=== PATIENT | male | born 1965 | race Caucasian/White ===

== ENCOUNTER 2022-08-07 05:52 | Day surgery (SDC) | payer BC, SELFPAY ==
[2022-08-07 06:40] VITALS: BP 140/93; PULSE 92; RESP 20; TEMP 36.3; O2SAT 100; BMI 28.4
[2022-08-07 06:42] LABS: COVID-19 Test Negative (Negative); IDNOW Serial# 55D5AD1C
--- NOTE | 2022-08-07 07:10 | HO.ANESPROP2 ---
[facility] Active Problems Active Problems: All Active Problems (Updated 08/06/22 @ 22:23 by Omid Hoff MD) Major depressive disorder, recurrent episode, severe with anxious distress (Acute) Past Medical History Medical History (Updated 08/06/22 @ 22:23 by Omid Hoff MD) Depression Essential hypertension History of severe acute respiratory syndrome coronavirus 2 (SARS-CoV-2) disease Mild intermittent asthma Pure hypercholesterolemia Sleep apnea Vitamin D deficiency Functional capacity: independent ambulation Family History Family history of problems with anesthesia: No Surgical History Surgical History History of colonoscopy History of foot surgery History of inguinal hernia repair History of vasectomy History of Problems with Anesthesia: No Social History Social History Patient Tobacco Use Status: Never used Tobacco Advance Directives: No Advance Directives Information Provided: Yes Current occupational status: employed Current occupation: self employed Meds Allergies Allergy/AdvReac Type Severity Reaction Status Date / Time Penicillins [PCN] Allergy Unknown Verified 08/06/22 10:57 Home Medications Medication Instructions Recorded Confirmed Last Taken Type albuterol sulfate 90 mcg/actuation 2 puff inhalation QID PRN 08/06/22 08/06/22 Unknown History aerosol inhaler Shortness Of Breath Or Wheezing beclomethasone dipropionate 80 2 inh inhalation BID 08/06/22 08/06/22 Unknown History mcg/actuation HFA breath activated aerosol (Qvar RediHaler) cholecalciferol (vitamin D3) 50 50 mcg PO DAILY 08/06/22 08/06/22 Unknown History mcg (2,000 unit) tablet (Vitamin D3) clonazepam 2 mg tablet 2 mg PO DAILY 08/06/22 08/06/22 Unknown History lisinopril 10 mg tablet 10 mg PO DAILY 08/06/22 08/06/22 Unknown History lithium carbonate 300 mg 300 mg PO DAILY 08/06/22 08/06/22 Unknown History tablet,extended release lovastatin 40 mg tablet 40 mg PO DAILY 08/06/22 08/06/22 Unknown History ropinirole 1 mg tablet 1 mg PO DAILY 08/06/22 08/06/22 Unknown History Exam Exam Date and Time: August 07, 2022 0710 Height,Weight and Vital Signs: Height 5 ft 10 in Weight 89.811 kg Last Vital Signs Temp 97.3 F 08/07/22 06:40 Pulse 92 08/07/22 06:40 Resp 20 08/07/22 06:40 BP 140/93 H 08/07/22 06:40 Pulse Ox 100 08/07/22 06:40 O2 Del Method 08/07/22 06:40 Pertinent Lab Results Pertinent Lab Results: Laboratory Tests 08/07/22 06:15 COVID-19 ([facility]) Negative COVID-19 Clin Com See Note Airway Mallampati Class: III TM Dist: >3cm Neck ROM: Full Heart: RRR Lungs: CTA Assessment and Plan Final Anesthetic Review Family History of Problems with Anesthesia: No History of Problems with Anesthesia: No ASA Class: III Final Preanesthetic Review: Meds/Allgs Chart Reviewed, Consent Obtained/Reviewed and Anes Risks/Benef Reviewed Patient Risk: Low Procedure Risk: Low Anesthetic Plan Anesthetic Plan: GA Disposition: Standard PACU
--- NOTE | 2022-08-07 07:37 | MHC.SHP ---
Pre-Procedural Eval Section A Date of Service: 08/07/22 The patient is an INPATIENT: No Changes since office visit: Yes Changes in Medication and Yes Patient answered all questions; No Cold of Flu in the past 2 weeks and No New Medical Problems The History & Physical has been completed within 30 days and I have reviewed it.: Yes Section B Chief Complaint: depression Allergies: Allergies Allergy/AdvReac Type Severity Reaction Status Date / Time Penicillins [PCN] Allergy Unknown Verified 08/06/22 10:57 Plan I have reviewed the history and physical and performed a pertinent physical examination on my patient. No changes have occurred unless specified.
--- NOTE | 2022-08-07 07:38 | HO.ECTPROC ---
ECT Procedure Note Diagnosis/Treatment Date of Service: 08/07/22 Diagnosis: Major Depressive Disorder Current Treatment Number: 1 Treatment: Series Interval Clinical Notes: see ect eval agitated depression with insomnia ECT Settings Device: THYMATRON DGx Electrode Placement: Right Unilateral Program/Pulse Width: 0.50 Energy Percent: 100 Seizure Duration By EEG (in seconds): 40 Medications Administration General Anesthetic: Etomidate (16) Muscle Relaxant: Succinylcholine (100) Ancillary Medications Anti-emetics: Zofran - Pre ECT Miscillaneous Medications: Flumazenil (500 mcg pre tx ) Airway Management Airway Management: Bag Mask Ventilation Treatment Recommendations Program/Pulse Width: 0.25 Energy Percent: 100 Notes: change to .25 program some confusion post ect transient ectopy
[2022-08-07 07:50] VITALS: BP 156/89; PULSE 75; RESP 16; TEMP 36.8; O2SAT 100
[2022-08-07] MEDS: Haloperidol Lactate 5 MG/ML VIAL 2 MG IVPUSH (08:22)
--- NOTE | 2022-08-07 08:27 | HO.ECTPROC ---
ECT Procedure Note Diagnosis/Treatment Date of Service: 08/07/22 ECT Settings Device: THYMATRON DGx
[2022-08-07] MEDS: clonazePAM 1 MG TABLET PO (08:29)
[2022-08-07 08:30] VITALS: PULSE 112
[2022-08-07 08:45] VITALS: BP 143/84; PULSE 99; RESP 16; O2SAT 95
[2022-08-07 09:00] VITALS: BP 137/88; PULSE 99; RESP 16; O2SAT 95
[2022-08-07 09:15] VITALS: BP 142/83; PULSE 97; RESP 18; TEMP 36.8; O2SAT 95
== END 2022-08-07 09:15 | disposition home or self-care (01) ==
PROVIDERS: PCP Internal Medicine; Visit Provider Psychiatry & Neurology Psychiatry
PROC: (CPT 90870; principal; 2022-08-07 07:30)
DX: F33.2 Major depressive disorder, recurrent severe without psychotic features (principal); F41.1 Generalized anxiety disorder; I10 Essential (primary) hypertension; J45.20 Mild intermittent asthma, uncomplicated; Z79.51 Long term (current) use of inhaled steroids; Z79.899 Other long term (current) drug therapy; Z88.0 Allergy status to penicillin; Z20.822 Contact with and (suspected) exposure to COVID-19; Z86.16 Personal history of COVID-19
CPT/HCPCS: 87635; 90870; J0330; J2250; J2405

== ENCOUNTER 2022-08-09 05:56 | Day surgery (SDC) | payer BC, SELFPAY ==
[2022-08-09] VITALS (7 sets, daily range): BP systolic 137–183; BP diastolic 53–91; PULSE 80–119; RESP 19–20; TEMP 36.2–36.8; O2SAT 94–99; BMI 28.4
[2022-08-09 06:41] LABS: COVID-19 Test Negative (Negative); IDNOW Serial# 16C4AD1C
--- NOTE | 2022-08-09 06:55 | P.CONAN_ITS ---
[facility] Active Problems Active Problems: All Active Problems (Updated 08/06/22 @ 22:23 by Omid Hoff MD) Major depressive disorder, recurrent episode, severe with anxious distress (Acute) Past Medical History Medical History (Updated 08/06/22 @ 22:23 by Omid Hoff MD) Depression Essential hypertension History of severe acute respiratory syndrome coronavirus 2 (SARS-CoV-2) disease Mild intermittent asthma Pure hypercholesterolemia Sleep apnea Vitamin D deficiency Family History Family history of problems with anesthesia: No Surgical History Surgical History History of colonoscopy History of foot surgery History of inguinal hernia repair History of vasectomy History of Problems with Anesthesia: No Social History Social History Patient Tobacco Use Status: Never used Tobacco Advance Directives: No Advance Directives Information Provided: Yes Current occupational status: employed Current occupation: self employed Meds Allergies Allergy/AdvReac Type Severity Reaction Status Date / Time Penicillins [PCN] Allergy Unknown Verified 08/06/22 10:57 Home Medications Medication Instructions Recorded Confirmed Last Taken Type albuterol sulfate 90 mcg/actuation 2 puff inhalation QID PRN 08/06/22 08/06/22 Unknown History aerosol inhaler Shortness Of Breath Or Wheezing beclomethasone dipropionate 80 2 inh inhalation BID 08/06/22 08/06/22 Unknown History mcg/actuation HFA breath activated aerosol (Qvar RediHaler) cholecalciferol (vitamin D3) 50 50 mcg PO DAILY 08/06/22 08/06/22 Unknown History mcg (2,000 unit) tablet (Vitamin D3) clonazepam 2 mg tablet 2 mg PO DAILY 08/06/22 08/06/22 Unknown History lisinopril 10 mg tablet 10 mg PO DAILY 08/06/22 08/06/22 Unknown History lithium carbonate 300 mg 300 mg PO DAILY 08/06/22 08/06/22 Unknown History tablet,extended release lovastatin 40 mg tablet 40 mg PO DAILY 08/06/22 08/06/22 Unknown History ropinirole 1 mg tablet 1 mg PO DAILY 08/06/22 08/06/22 Unknown History Exam Exam Date and Time: August 09, 2022 0655 Height,Weight and Vital Signs: Height 5 ft 10 in Weight 89.811 kg Last Vital Signs Temp 97.1 F 08/09/22 06:33 Pulse 95 08/09/22 06:33 Resp 20 08/09/22 06:33 BP 183/91 H 08/09/22 06:33 Pulse Ox 99 08/09/22 06:33 O2 Del Method 08/09/22 06:33 Pertinent Lab Results Pertinent Lab Results: Laboratory Tests 08/09/22 06:17 COVID-19 ([facility]) Negative COVID-19 Clin Com See Note Airway Mallampati Class: II (Small mouth) TM Dist: >3cm Neck ROM: Full Heart: rrr Lungs: cta Assessment and Plan Assessment Anesthesia Assessment: Anesthesia Plan Discussed and Chart Reviewed Final Anesthetic Review Family History of Problems with Anesthesia: No History of Problems with Anesthesia: No NPO: Yes ASA Class: III Final Preanesthetic Review: No Changes in Pt Med Stat, Meds/Allgs Chart Reviewed and Consent Obtained/Reviewed Patient Risk: Intermediate Procedure Risk: Intermediate Anesthetic Plan Anesthetic Plan: GA Disposition: Standard PACU
--- NOTE | 2022-08-09 07:38 | MHC.SHP ---
Pre-Procedural Eval Section A Date of Service: 08/09/22 The patient is an INPATIENT: No Changes since office visit: Yes New Medical Problems, Yes Changes in Medication and Yes Patient answered all questions; No Cold of Flu in the past 2 weeks Section B Chief Complaint: depression Allergies: Allergies Allergy/AdvReac Type Severity Reaction Status Date / Time Penicillins [PCN] Allergy Unknown Verified 08/06/22 10:57 Plan I have reviewed the history and physical and performed a pertinent physical examination on my patient. No changes have occurred unless specified.
--- NOTE | 2022-08-09 07:51 | P.EN_ITS ---
Event Note Date of Service: 08/09/22 Event Note: Discussed with patient alongside Dr. Hoff, Dr. Schilling and Jose Isaac about a needle stick incident that occurred during the last ECT 2 days prior. This was done today before his procedure so he was 100% aware and understood all that we discussed. The discussion entailed the process of taking blood from him and the subject that was stuck prior and that we will relay the results to him as soon as they are readily available. Patient understood ever ything we discussed and all his questions were answered. Thank you.
--- NOTE | 2022-08-09 07:58 | HO.ECTPROC ---
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 will draw hic hep c pt agreeable feeling better after 1 st ect change to .25 program ECT Settings Device: THYMATRON DGx Electrode Placement: Right Unilateral Program/Pulse Width: 0.25 Energy Percent: 100 Seizure Duration By EEG (in seconds): 55 Medications Administration General Anesthetic: Etomidate (16) Muscle Relaxant: Succinylcholine (100) Ancillary Medications Analgesics: Torodol - Pre ECT Anti-emetics: Zofran - Pre ECT Miscillaneous Medications: Propofol (30 post prophylactically ) and Midazolam (2 mg post ) Airway Management Airway Management: Bag Mask Ventilation Treatment Recommendations No Changes Recommended: No change Electrode Placement: Right Unilateral Program/Pulse Width: 0.25 Notes: pt tolerated ect with much improvement needed some redirection next tx 08/12/22
[2022-08-09] MEDS: Haloperidol Lactate 5 MG/ML VIAL 2.5 MG IVPUSH (08:10)
[2022-08-09] MEDS: Midazolam HCl/PF 2 MG/2 ML VIAL IVPUSH (08:18)
[2022-08-09 09:59] LABS: HBS Num1 2.48 mIU/mL (0-7.99); HBc Num1 0.05 S/CO (0.00-0.79); HBsAGNum1 0.19 S/CO (0.00-0.99); Hepatitis A Antibody IgM 0.21 Index (0-0.79); Hepatitis B Core Antibody Nonreactive (Nonreactive); Hepatitis B Surface Antigen Negative (Negative); ~HepC Num1 0.14 S/CO (0.00-0.79); ~Hepatitis A Antibody IgM Nonreactive (Nonreactive); ~Hepatitis B Surface Antibody NONREACTIVE (Nonreactive); ~Hepatitis C Antibody Nonreactive (Nonreactive)
== END 2022-08-09 08:57 | disposition home or self-care (01) ==
PROVIDERS: PCP Internal Medicine; Visit Provider Psychiatry & Neurology Psychiatry
PROC: (CPT 90870; principal; 2022-08-09 07:30)
DX: F33.3 Major depressive disorder, recurrent, severe with psychotic symptoms (principal); I10 Essential (primary) hypertension; J45.20 Mild intermittent asthma, uncomplicated; E78.00 Pure hypercholesterolemia, unspecified; E55.9 Vitamin D deficiency, unspecified; G47.30 Sleep apnea, unspecified; Z79.899 Other long term (current) drug therapy; Z79.51 Long term (current) use of inhaled steroids; Z99.89 Dependence on other enabling machines and devices; Z88.0 Allergy status to penicillin; Z20.5 Contact with and (suspected) exposure to viral hepatitis; Z20.822 Contact with and (suspected) exposure to COVID-19; Z86.16 Personal history of COVID-19
CPT/HCPCS: 36415; 86704; 86706; 86709; 86803; 87340; 87389; 87635; 90870; 99499; J0330; J1885; J2250; J2405

== ENCOUNTER 2022-08-12 05:56 | Day surgery (SDC) | payer BC, SELFPAY ==
[2022-08-12 06:32] VITALS: BP 154/87; PULSE 93; RESP 18; TEMP 36.8; O2SAT 97; BMI 28.4
--- NOTE | 2022-08-12 07:02 | MHC.SHP ---
Pre-Procedural Eval Section A Date of Service: 08/12/22 The patient is an INPATIENT: No Changes since office visit: No Cold of Flu in the past 2 weeks, No New Medical Problems, No Changes in Medication and No Patient answered all questions The History & Physical has been completed within 30 days and I have reviewed it.: Yes Section B Chief Complaint: depression Allergies: Allergies Allergy/AdvReac Type Severity Reaction Status Date / Time Penicillins [PCN] Allergy Unknown Verified 08/06/22 10:57 Plan I have reviewed the history and physical and performed a pertinent physical examination on my patient. No changes have occurred unless specified.
--- NOTE | 2022-08-12 07:04 | HO.ECTPROC ---
ECT Procedure Note Diagnosis/Treatment Date of Service: 08/12/22 Diagnosis: Major Depressive Disorder Previous ECT Date: 08/09/22 Current Treatment Number: 3 Treatment: Series Interval Clinical Notes: The patient reported improvement of his mood with ECT. The staff has noticed that he is less dysphoric, more talkative with a wider range of affect. Denies headache after ECT. He wakes up disoriented and agitated so we will give Propofol and other medications to prevent it. He stopped his Klonopin the night before. ECT Settings Device: THYMATRON DGx Electrode Placement: Right Unilateral Program/Pulse Width: 0.25 Energy Percent: 100 Seizure Duration By EEG (in seconds): 45 By Motor Observation (in seconds): 30 Medications Administration General Anesthetic: Etomidate (16) Muscle Relaxant: Succinylcholine (100) Ancillary Medications Analgesics: Torodol - Pre ECT Anti-emetics: Zofran - Pre ECT Cardiovascular Medications: Glycopyrrolate Miscillaneous Medications: Propofol Airway Management Airway Management: Bag Mask Ventilation Treatment Recommendations No Changes Recommended: No change Pt Tolerated Procedure w/o Issue: Yes
[2022-08-12 07:12] LABS: COVID-19 Test Negative (Negative); IDNOW Serial# 16C4AD1C
[2022-08-12 07:45] VITALS: BP 124/82; PULSE 78; RESP 14; TEMP 36.2; O2SAT 97
[2022-08-12 07:50] VITALS: BP 123/82; PULSE 99; RESP 18; O2SAT 95
[2022-08-12 07:55] VITALS: BP 137/99; PULSE 95; RESP 18; O2SAT 96
[2022-08-12 08:00] VITALS: BP 142/85; PULSE 94; RESP 18; O2SAT 97
--- NOTE | 2022-08-12 08:06 | HO.ANESPROP2 ---
HPI - Anesthesia Eval Consult details Narrative: 57 yo male patient for ECT PMFSH Active Problems Active Problems: All Active Problems (Updated 08/06/22 @ 22:23 by Omid Hoff MD) Major depressive disorder, recurrent episode, severe with anxious distress (Acute) BRI. Uses CPAP Past Medical History Medical History Depression Essential hypertension History of severe acute respiratory syndrome coronavirus 2 (SARS-CoV-2) disease Mild intermittent asthma Pure hypercholesterolemia Sleep apnea Vitamin D deficiency Family History Family history of problems with anesthesia: No Surgical History Surgical History History of colonoscopy History of foot surgery History of inguinal hernia repair History of vasectomy History of Problems with Anesthesia: No Social History Social History Patient Tobacco Use Status: Never used Tobacco Advance Directives: No Advance Directives Information Provided: Yes Current occupational status: employed Current occupation: self employed Meds Allergies Allergy/AdvReac Type Severity Reaction Status Date / Time Penicillins [PCN] Allergy Unknown Verified 08/06/22 10:57 Active Medications: Current Medications Lactated Ringer's (Lr) 1,000 mls @ 100 mls/hr IVCONT .Q10H JAMES Home Medications Medication Instructions Recorded Confirmed Last Taken Type albuterol sulfate 90 mcg/actuation 2 puff inhalation QID PRN 08/06/22 08/06/22 Unknown History aerosol inhaler Shortness Of Breath Or Wheezing beclomethasone dipropionate 80 2 inh inhalation BID 08/06/22 08/06/22 Unknown History mcg/actuation HFA breath activated aerosol (Qvar RediHaler) cholecalciferol (vitamin D3) 50 50 mcg PO DAILY 08/06/22 08/06/22 Unknown History mcg (2,000 unit) tablet (Vitamin D3) clonazepam 2 mg tablet 2 mg PO DAILY 08/06/22 08/06/22 Unknown History lisinopril 10 mg tablet 10 mg PO DAILY 08/06/22 08/06/22 Unknown History lithium carbonate 300 mg 300 mg PO DAILY 08/06/22 08/06/22 Unknown History tablet,extended release lovastatin 40 mg tablet 40 mg PO DAILY 08/06/22 08/06/22 Unknown History ropinirole 1 mg tablet 1 mg PO DAILY 08/06/22 08/06/22 Unknown History Exam Exam Date and Time: August 12, 2022 0806 Height,Weight and Vital Signs: Height 5 ft 10 in Weight 89.811 kg Last Vital Signs Temp 97.2 F 08/12/22 07:45 Pulse 94 08/12/22 08:00 Resp 18 08/12/22 08:00 BP 142/85 H 08/12/22 08:00 Pulse Ox 97 08/12/22 08:00 O2 Del Method 08/12/22 08:00 O2 Flow Rate 2 08/12/22 07:45 Pertinent Lab Results Pertinent Lab Results: Laboratory Tests 08/12/22 06:20 COVID-19 ([facility]) Negative COVID-19 Clin Com See Note Airway Mallampati Class: III TM Dist: >3cm Neck ROM: Full Loose/Missing/Broken Teeth: No (Denies broken or loose teeth) Heart: RRR Lungs: CTAB Assessment and Plan Assessment Anesthesia Assessment: Anesthesia Plan Discussed and Chart Reviewed Final Anesthetic Review Family History of Problems with Anesthesia: No History of Problems with Anesthesia: No NPO: Yes ASA Class: III Final Preanesthetic Review: No Changes in Pt Med Stat, Meds/Allgs Chart Reviewed, Consent Obtained/Reviewed and Anes Risks/Benef Reviewed Patient Risk: Intermediate Procedure Risk: Intermediate Assessment/Block/Sedation in SS: Assess/Block/Sedation-SS Anesthetic Plan Anesthetic Plan: GA Disposition: Standard PACU
[2022-08-12 08:15] VITALS: BP 143/88; PULSE 99; RESP 18; TEMP 36.4; O2SAT 95
[2022-08-12 08:38] LABS: HIV AB/AG Nonreactive (Nonreactive); HIV Num 1 0.07 S/CO (0.00-0.99)
== END 2022-08-12 08:20 | disposition home or self-care (01) ==
PROVIDERS: PCP Internal Medicine; Visit Provider Psychiatry & Neurology Psychiatry
PROC: (CPT 90870; principal; 2022-08-12 07:00)
DX: F33.2 Major depressive disorder, recurrent severe without psychotic features (principal); I10 Essential (primary) hypertension; J45.20 Mild intermittent asthma, uncomplicated; G47.30 Sleep apnea, unspecified; E78.00 Pure hypercholesterolemia, unspecified; E55.9 Vitamin D deficiency, unspecified; Z79.51 Long term (current) use of inhaled steroids; Z79.899 Other long term (current) drug therapy; Z88.0 Allergy status to penicillin; Z20.822 Contact with and (suspected) exposure to COVID-19; Z86.16 Personal history of COVID-19
CPT/HCPCS: 36415; 87635; 90870; J0330; J1885; J2250; J2405

== ENCOUNTER 2022-08-14 06:00 | Day surgery (SDC) | payer BC, SELFPAY ==
[2022-08-14] VITALS (7 sets, daily range): BP systolic 125–150; BP diastolic 76–107; PULSE 76–93; RESP 14–18; TEMP 36.6–37.1; O2SAT 96–99; BMI 28.4
[2022-08-14 06:38] LABS: COVID-19 Test Negative (Negative)
--- NOTE | 2022-08-14 07:46 | P.CONAN_ITS ---
[facility] Active Problems Active Problems: All Active Problems (Updated 08/06/22 @ 22:23 by Omid Hoff MD) Major depressive disorder, recurrent episode, severe with anxious distress (Acute) Past Medical History Medical History Depression Essential hypertension History of severe acute respiratory syndrome coronavirus 2 (SARS-CoV-2) disease Mild intermittent asthma Pure hypercholesterolemia Sleep apnea Vitamin D deficiency Family History Family history of problems with anesthesia: No Surgical History Surgical History History of colonoscopy History of foot surgery History of inguinal hernia repair History of vasectomy History of Problems with Anesthesia: No Social History Social History Patient Tobacco Use Status: Never used Tobacco Advance Directives: No Advance Directives Information Provided: Yes Current occupational status: employed Current occupation: self employed Meds Allergies Allergy/AdvReac Type Severity Reaction Status Date / Time Penicillins [PCN] Allergy Unknown Verified 08/06/22 10:57 Home Medications Medication Instructions Recorded Confirmed Last Taken Type albuterol sulfate 90 mcg/actuation 2 puff inhalation QID PRN 08/06/22 08/06/22 Unknown History aerosol inhaler Shortness Of Breath Or Wheezing beclomethasone dipropionate 80 2 inh inhalation BID 08/06/22 08/06/22 Unknown History mcg/actuation HFA breath activated aerosol (Qvar RediHaler) cholecalciferol (vitamin D3) 50 50 mcg PO DAILY 08/06/22 08/06/22 Unknown History mcg (2,000 unit) tablet (Vitamin D3) clonazepam 2 mg tablet 2 mg PO DAILY 08/06/22 08/06/22 Unknown History lisinopril 10 mg tablet 10 mg PO DAILY 08/06/22 08/06/22 Unknown History lithium carbonate 300 mg 300 mg PO DAILY 08/06/22 08/06/22 Unknown History tablet,extended release lovastatin 40 mg tablet 40 mg PO DAILY 08/06/22 08/06/22 Unknown History ropinirole 1 mg tablet 1 mg PO DAILY 08/06/22 08/06/22 Unknown History Exam Exam Date and Time: August 14, 2022 0746 Height,Weight and Vital Signs: Height 5 ft 10 in Weight 89.811 kg Last Vital Signs Temp 98.2 F 08/14/22 06:49 Pulse 76 08/14/22 06:49 Resp 14 08/14/22 06:49 BP 125/76 08/14/22 06:49 Pulse Ox 97 08/14/22 06:49 O2 Del Method 08/14/22 06:49 Pertinent Lab Results Pertinent Lab Results: Laboratory Tests 08/14/22 06:16 COVID-19 ([facility]) Negative COVID-19 Clin Com See Note Airway Mallampati Class: II TM Dist: >3cm Neck ROM: Full Loose/Missing/Broken Teeth: No Heart: RRR Lungs: CTA Assessment and Plan Assessment Anesthesia Assessment: Anesthesia Plan Discussed and Chart Reviewed Final Anesthetic Review Family History of Problems with Anesthesia: No History of Problems with Anesthesia: No NPO: Yes ASA Class: II Final Preanesthetic Review: Meds/Allgs Chart Reviewed, Consent Obtained/Reviewed and Anes Risks/Benef Reviewed Patient Risk: Low Procedure Risk: Intermediate Anesthetic Plan Anesthetic Plan: GA Disposition: Standard PACU
--- NOTE | 2022-08-14 07:46 | MHC.SHP ---
Pre-Procedural Eval Section A Date of Service: 08/14/22 Changes since office visit: Yes Changes in Medication and Yes Patient answered all questions; No Cold of Flu in the past 2 weeks and No New Medical Problems The History & Physical has been completed within 30 days and I have reviewed it.: Yes Section B Chief Complaint: depression Allergies: Allergies Allergy/AdvReac Type Severity Reaction Status Date / Time Penicillins [PCN] Allergy Unknown Verified 08/06/22 10:57 Plan I have reviewed the history and physical and performed a pertinent physical examination on my patient. No changes have occurred unless specified.
--- NOTE | 2022-08-14 07:46 | HO.ECTPROC ---
ECT Procedure Note Diagnosis/Treatment Date of Service: 08/14/22 Diagnosis: Major Depressive Disorder Previous ECT Date: 08/12/22 Current Treatment Number: 4 Treatment: Series Interval Clinical Notes: pt feeling better less depressed tolerating post ect better in pacu with versed propofol reassurance ECT Settings Device: THYMATRON DGx Electrode Placement: Right Unilateral Program/Pulse Width: 0.25 Energy Percent: 100 Seizure Duration By EEG (in seconds): 34 Medications Administration General Anesthetic: Etomidate (16) Muscle Relaxant: Succinylcholine (100) Ancillary Medications Analgesics: Torodol - Pre ECT Anti-emetics: Zofran - Pre ECT Miscillaneous Medications: Propofol (30 mg) and Midazolam (2mg) Airway Management Airway Management: Bag Mask Ventilation Treatment Recommendations No Changes Recommended: No change Notes: consider change to o.5 pw/ had transient bradycardia suggest glyco pre tx per anesthesia discussion Pt Tolerated Procedure w/o Issue: Yes
== END 2022-08-14 09:06 | disposition home or self-care (01) ==
PROVIDERS: PCP Internal Medicine; Visit Provider Psychiatry & Neurology Psychiatry
PROC: (CPT 90870; principal; 2022-08-14 08:00)
DX: F33.2 Major depressive disorder, recurrent severe without psychotic features (principal); I10 Essential (primary) hypertension; E78.5 Hyperlipidemia, unspecified; J45.20 Mild intermittent asthma, uncomplicated; G47.33 Obstructive sleep apnea (adult) (pediatric); E55.9 Vitamin D deficiency, unspecified; Z79.51 Long term (current) use of inhaled steroids; Z79.899 Other long term (current) drug therapy; Z99.89 Dependence on other enabling machines and devices; Z88.0 Allergy status to penicillin; Z20.822 Contact with and (suspected) exposure to COVID-19; Z86.16 Personal history of COVID-19
CPT/HCPCS: 87635; 90870; J0330; J0461; J1885; J2250; J2405

== ENCOUNTER 2022-08-16 08:02 | Day surgery (SDC) | payer BC, SELFPAY ==
--- NOTE | 2022-08-16 08:29 | HO.ANESPROP2 ---
[facility] Active Problems Active Problems: All Active Problems (Updated 08/06/22 @ 22:23 by Omid Hoff MD) Major depressive disorder, recurrent episode, severe with anxious distress (Acute) Past Medical History Medical History Depression Essential hypertension History of severe acute respiratory syndrome coronavirus 2 (SARS-CoV-2) disease Mild intermittent asthma Pure hypercholesterolemia Sleep apnea Vitamin D deficiency Family History Family history of problems with anesthesia: No Surgical History Surgical History History of colonoscopy History of foot surgery History of inguinal hernia repair History of vasectomy History of Problems with Anesthesia: No Social History Social History Patient Tobacco Use Status: Never used Tobacco Advance Directives: No Advance Directives Information Provided: Yes Current occupational status: employed Current occupation: self employed Meds Allergies Allergy/AdvReac Type Severity Reaction Status Date / Time Penicillins [PCN] Allergy Unknown Verified 08/06/22 10:57 Home Medications Medication Instructions Recorded Confirmed Last Taken Type albuterol sulfate 90 mcg/actuation 2 puff inhalation QID PRN 08/06/22 08/06/22 Unknown History aerosol inhaler Shortness Of Breath Or Wheezing beclomethasone dipropionate 80 2 inh inhalation BID 08/06/22 08/06/22 Unknown History mcg/actuation HFA breath activated aerosol (Qvar RediHaler) cholecalciferol (vitamin D3) 50 50 mcg PO DAILY 08/06/22 08/06/22 Unknown History mcg (2,000 unit) tablet (Vitamin D3) clonazepam 2 mg tablet 2 mg PO DAILY 08/06/22 08/06/22 Unknown History lisinopril 10 mg tablet 10 mg PO DAILY 08/06/22 08/06/22 Unknown History lithium carbonate 300 mg 300 mg PO DAILY 08/06/22 08/06/22 Unknown History tablet,extended release lovastatin 40 mg tablet 40 mg PO DAILY 08/06/22 08/06/22 Unknown History ropinirole 1 mg tablet 1 mg PO DAILY 08/06/22 08/06/22 Unknown History Exam Exam Date and Time: August 16, 2022 0829 Airway Mallampati Class: II TM Dist: >3cm Neck ROM: Full Heart: rrr Lungs: cta Assessment and Plan Assessment Anesthesia Assessment: Anesthesia Plan Discussed and Chart Reviewed Final Anesthetic Review Family History of Problems with Anesthesia: No History of Problems with Anesthesia: No NPO: Yes ASA Class: III Final Preanesthetic Review: No Changes in Pt Med Stat, Meds/Allgs Chart Reviewed and Consent Obtained/Reviewed Patient Risk: Intermediate Procedure Risk: Intermediate Anesthetic Plan Anesthetic Plan: GA Disposition: Standard PACU
[2022-08-16 08:38] VITALS: BP 143/85; PULSE 77; RESP 20; TEMP 36.3; O2SAT 99
[2022-08-16 08:42] LABS: COVID-19 Test Negative (Negative); IDNOW Serial# BCCEAD1C
--- NOTE | 2022-08-16 09:11 | MHC.SHP ---
Pre-Procedural Eval Section A Date of Service: 08/16/22 The patient is an INPATIENT: No Changes since office visit: Yes Changes in Medication and Yes Patient answered all questions; No Cold of Flu in the past 2 weeks and No New Medical Problems The History & Physical has been completed within 30 days and I have reviewed it.: Yes Section B Chief Complaint: depession Allergies: Allergies Allergy/AdvReac Type Severity Reaction Status Date / Time Penicillins [PCN] Allergy Unknown Verified 08/06/22 10:57 Plan I have reviewed the history and physical and performed a pertinent physical examination on my patient. No changes have occurred unless specified.
[2022-08-16 10:02] VITALS: BP 111/74; PULSE 81; RESP 19; TEMP 37; O2SAT 94
[2022-08-16 10:07] VITALS: PULSE 107; RESP 20; O2SAT 94
[2022-08-16 10:12] VITALS: PULSE 115; RESP 20
[2022-08-16 10:17] VITALS: PULSE 117; RESP 20
[2022-08-16 10:32] VITALS: BP 138/82; PULSE 103; RESP 20; TEMP 36.5; O2SAT 99
--- NOTE | 2022-08-16 14:42 | P.PCN_ITS ---
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 ECT Settings Device: THYMATRON DGx Electrode Placement: Right Unilateral Program/Pulse Width: 0.25 Energy Percent: 100 Seizure Duration By EEG (in seconds): 46 Medications Administration General Anesthetic: Etomidate (16) Muscle Relaxant: Succinylcholine (100) Ancillary Medications Analgesics: Torodol - Pre ECT Anti-emetics: Zofran - Pre ECT Miscillaneous Medications: Propofol (30 mg) and Midazolam (2mg) Airway Management Airway Management: Bag Mask Ventilation Treatment Recommendations No Changes Recommended: No change Notes: did not need glycopyrrolate tolerated procedure well re-evaluate after Friday's treatment 6 Response to verbal redirection post ECT. Pt Tolerated Procedure w/o Issue: Yes
== END 2022-08-16 10:55 | disposition home or self-care (01) ==
PROVIDERS: PCP Internal Medicine; Visit Provider Psychiatry & Neurology Psychiatry
PROC: (CPT 90870; principal; 2022-08-16 09:30)
DX: F33.2 Major depressive disorder, recurrent severe without psychotic features (principal); J45.20 Mild intermittent asthma, uncomplicated; E78.00 Pure hypercholesterolemia, unspecified; I10 Essential (primary) hypertension; E55.9 Vitamin D deficiency, unspecified; G47.33 Obstructive sleep apnea (adult) (pediatric); Z99.89 Dependence on other enabling machines and devices; Z79.899 Other long term (current) drug therapy; Z86.16 Personal history of COVID-19; Z20.822 Contact with and (suspected) exposure to COVID-19; Z88.0 Allergy status to penicillin
CPT/HCPCS: 87635; 90870; J0330; J1885; J2250; J2405

== ENCOUNTER 2022-08-19 05:55 | Day surgery (SDC) | payer BC, SELFPAY ==
[2022-08-19 06:44] VITALS: BP 145/88; PULSE 79; RESP 18; TEMP 36.8; O2SAT 97; BMI 28.4
[2022-08-19 06:49] LABS: COVID-19 Test Negative (Negative)
--- NOTE | 2022-08-19 07:01 | HO.ANESPROP2 ---
[facility] Active Problems Active Problems: All Active Problems (Updated 08/06/22 @ 22:23 by Omid Hoff MD) Major depressive disorder, recurrent episode, severe with anxious distress (Acute) Past Medical History Medical History Depression Essential hypertension History of severe acute respiratory syndrome coronavirus 2 (SARS-CoV-2) disease Mild intermittent asthma Pure hypercholesterolemia Sleep apnea Vitamin D deficiency Family History Family history of problems with anesthesia: No Surgical History Surgical History History of colonoscopy History of foot surgery History of inguinal hernia repair History of vasectomy History of Problems with Anesthesia: No Social History Social History Patient Tobacco Use Status: Never used Tobacco Advance Directives: No Advance Directives Information Provided: Yes Current occupational status: employed Current occupation: self employed Meds Allergies Allergy/AdvReac Type Severity Reaction Status Date / Time Penicillins [PCN] Allergy Unknown Verified 08/06/22 10:57 Active Medications: Current Medications Lactated Ringer's (Lr) 1,000 mls @ 50 mls/hr IVCONT .Q20H JAMES Home Medications Medication Instructions Recorded Confirmed Last Taken Type albuterol sulfate 90 mcg/actuation 2 puff inhalation QID PRN 08/06/22 08/06/22 Unknown History aerosol inhaler Shortness Of Breath Or Wheezing beclomethasone dipropionate 80 2 inh inhalation BID 08/06/22 08/06/22 Unknown History mcg/actuation HFA breath activated aerosol (Qvar RediHaler) cholecalciferol (vitamin D3) 50 50 mcg PO DAILY 08/06/22 08/06/22 Unknown History mcg (2,000 unit) tablet (Vitamin D3) clonazepam 2 mg tablet 2 mg PO DAILY 08/06/22 08/06/22 Unknown History lisinopril 10 mg tablet 10 mg PO DAILY 08/06/22 08/06/22 Unknown History lithium carbonate 300 mg 300 mg PO DAILY 08/06/22 08/06/22 Unknown History tablet,extended release lovastatin 40 mg tablet 40 mg PO DAILY 08/06/22 08/06/22 Unknown History ropinirole 1 mg tablet 1 mg PO DAILY 11/08/22 11/08/22 Unknown History Exam Exam Date and Time: August 19, 2022 0701 Height,Weight and Vital Signs: Height 5 ft 10 in Weight 89.811 kg Last Vital Signs Temp 98.3 F 08/19/22 06:44 Pulse 79 08/19/22 06:44 Resp 18 08/19/22 06:44 BP 145/88 H 08/19/22 06:44 Pulse Ox 97 08/19/22 06:44 O2 Del Method 08/19/22 06:44 Pertinent Lab Results Pertinent Lab Results: Laboratory Tests 08/19/22 06:21 COVID-19 ([facility]) Negative COVID-19 Clin Com See Note Airway Mallampati Class: II TM Dist: >3cm Neck ROM: Full Heart: rrr Lungs: cta Assessment and Plan Assessment Anesthesia Assessment: Anesthesia Plan Discussed and Chart Reviewed Final Anesthetic Review Family History of Problems with Anesthesia: No History of Problems with Anesthesia: No NPO: Yes ASA Class: III Final Preanesthetic Review: No Changes in Pt Med Stat, Meds/Allgs Chart Reviewed and Consent Obtained/Reviewed Patient Risk: Intermediate Procedure Risk: Intermediate Anesthetic Plan Anesthetic Plan: GA Disposition: Standard PACU
--- NOTE | 2022-08-19 07:06 | MHC.SHP ---
Pre-Procedural Eval Section A Date of Service: 08/19/22 The patient is an INPATIENT: No Changes since office visit: No Cold of Flu in the past 2 weeks, No New Medical Problems, No Changes in Medication and No Patient answered all questions The History & Physical has been completed within 30 days and I have reviewed it.: Yes Section B Chief Complaint: depression Allergies: Allergies Allergy/AdvReac Type Severity Reaction Status Date / Time Penicillins [PCN] Allergy Unknown Verified 08/06/22 10:57 Plan I have reviewed the history and physical and performed a pertinent physical examination on my patient. No changes have occurred unless specified.
--- NOTE | 2022-08-19 07:45 | HO.ECTPROC ---
ECT Procedure Note Diagnosis/Treatment Date of Service: 08/19/22 Diagnosis: Major Depressive Disorder Previous ECT Date: 08/16/22 Current Treatment Number: 7 Treatment: Series Interval Clinical Notes: The patient reported improvement of mood, less dyaphoric, no side effects with previous procedure. He was asking if this is his last ECT. We discussed the possibility of starting antidepressants since he is not taking any right now. ECT Settings Device: THYMATRON DGx Electrode Placement: Right Unilateral Program/Pulse Width: 0.25 Energy Percent: 100 Seizure Duration By EEG (in seconds): 35 By Motor Observation (in seconds): 31 Medications Administration General Anesthetic: Etomidate (16) Muscle Relaxant: Succinylcholine (100) Ancillary Medications Analgesics: Torodol - Pre ECT Anti-emetics: Zofran - Pre ECT Miscillaneous Medications: Propofol and Midazolam Airway Management Airway Management: Bag Mask Ventilation Treatment Recommendations No Changes Recommended: No change Pt Tolerated Procedure w/o Issue: Yes
[2022-08-19 08:14] VITALS: BP 120/73; PULSE 84; RESP 18; TEMP 37.2; O2SAT 95
[2022-08-19 08:19] VITALS: BP 121/75; PULSE 114; RESP 20; O2SAT 94
[2022-08-19 08:24] VITALS: PULSE 125; RESP 20; O2SAT 94
[2022-08-19 08:29] VITALS: PULSE 123; RESP 20; O2SAT 94
[2022-08-19 08:44] VITALS: BP 136/77; PULSE 100; RESP 18; TEMP 36.9; O2SAT 96
== END 2022-08-19 09:00 | disposition home or self-care (01) ==
PROVIDERS: PCP Internal Medicine; Visit Provider Psychiatry & Neurology Psychiatry
PROC: (CPT 90870; principal; 2022-08-19 07:00)
DX: F33.3 Major depressive disorder, recurrent, severe with psychotic symptoms (principal); I10 Essential (primary) hypertension; J45.20 Mild intermittent asthma, uncomplicated; E78.00 Pure hypercholesterolemia, unspecified; G47.30 Sleep apnea, unspecified; E55.9 Vitamin D deficiency, unspecified; Z79.51 Long term (current) use of inhaled steroids; Z79.899 Other long term (current) drug therapy; Z88.0 Allergy status to penicillin; Z99.89 Dependence on other enabling machines and devices; Z20.822 Contact with and (suspected) exposure to COVID-19; Z86.16 Personal history of COVID-19
CPT/HCPCS: 87635; 90870; J0330; J1885; J2250; J2405

== ENCOUNTER 2022-08-21 05:57 | Day surgery (SDC) | payer BC, SELFPAY ==
[2022-08-21 06:38] LABS: COVID-19 Test Negative (Negative); IDNOW Serial# BCCEAD1C
[2022-08-21 06:43] VITALS: BP 119/77; PULSE 81; RESP 16; TEMP 36.6; O2SAT 94; BMI 28.4
--- NOTE | 2022-08-21 07:27 | MHC.SHP ---
Pre-Procedural Eval Section A Date of Service: 08/21/22 Changes since office visit: Yes Changes in Medication and Yes Patient answered all questions; No Cold of Flu in the past 2 weeks and No New Medical Problems The History & Physical has been completed within 30 days and I have reviewed it.: Yes Section B Chief Complaint: depression Allergies: Allergies Allergy/AdvReac Type Severity Reaction Status Date / Time Penicillins [PCN] Allergy Unknown Verified 08/06/22 10:57 Plan I have reviewed the history and physical and performed a pertinent physical examination on my patient. No changes have occurred unless specified.
[2022-08-21 08:15] VITALS: BP 133/73; PULSE 95; RESP 16; TEMP 37.1; O2SAT 96
[2022-08-21 08:20] VITALS: PULSE 89; RESP 19; O2SAT 96
--- NOTE | 2022-08-21 08:23 | P.CONAN_ITS ---
[facility], LAT[facility] Active Problems Active Problems: All Active Problems (Updated 08/06/22 @ 22:23 by Omid Hoff MD) Major depressive disorder, recurrent episode, severe with anxious distress (Acute) Past Medical History Medical History Depression Essential hypertension History of severe acute respiratory syndrome coronavirus 2 (SARS-CoV-2) disease Mild intermittent asthma Pure hypercholesterolemia Sleep apnea Vitamin D deficiency Functional capacity: independent ambulation Family History Family history of problems with anesthesia: No Surgical History Surgical History History of colonoscopy History of foot surgery History of inguinal hernia repair History of vasectomy History of Problems with Anesthesia: No Social History Social History Patient Tobacco Use Status: Never used Tobacco Advance Directives: No Advance Directives Information Provided: Yes Current occupational status: employed Current occupation: self employed Meds Allergies Allergy/AdvReac Type Severity Reaction Status Date / Time Penicillins [PCN] Allergy Unknown Verified 08/06/22 10:57 Active Medications: Current Medications Haloperidol Lactate (Haloperidol Lactate 5 Mg/Ml Vial) 2.5 mg IV ONCE ONE Stop: 08/21/22 08:13 Home Medications Medication Instructions Recorded Confirmed Last Taken Type albuterol sulfate 90 mcg/actuation 2 puff inhalation QID PRN 08/06/22 08/06/22 Unknown History aerosol inhaler Shortness Of Breath Or Wheezing beclomethasone dipropionate 80 2 inh inhalation BID 08/06/22 08/06/22 Unknown History mcg/actuation HFA breath activated aerosol (Qvar RediHaler) cholecalciferol (vitamin D3) 50 50 mcg PO DAILY 08/06/22 08/06/22 Unknown History mcg (2,000 unit) tablet (Vitamin D3) clonazepam 2 mg tablet 2 mg PO DAILY 08/06/22 08/06/22 Unknown History lisinopril 10 mg tablet 10 mg PO DAILY 08/06/22 08/06/22 Unknown History lithium carbonate 300 mg 300 mg PO DAILY 08/06/22 08/06/22 Unknown History tablet,extended release lovastatin 40 mg tablet 40 mg PO DAILY 08/06/22 08/06/22 Unknown History ropinirole 1 mg tablet 1 mg PO DAILY 08/06/22 08/06/22 Unknown History Exam Exam Date and Time: August 21, 2022822 Height,Weight and Vital Signs: Height 5 ft 10 in Weight 89.811 kg Last Vital Signs Temp 98.7 F 08/21/22 08:15 Pulse 95 08/21/22 08:15 Resp 16 08/21/22 08:15 BP 133/73 08/21/22 08:15 Pulse Ox 96 08/21/22 08:15 O2 Del Method 08/21/22 08:15 O2 Flow Rate 2 08/21/22 08:15 Pertinent Lab Results Pertinent Lab Results: Laboratory Tests 08/21/22 06:17 COVID-19 ([facility]) Negative COVID-19 Clin Com See Note Airway Mallampati Class: III TM Dist: >3cm Neck ROM: Full Heart: RRR Lungs: CTA Assessment and Plan Final Anesthetic Review Family History of Problems with Anesthesia: No History of Problems with Anesthesia: No ASA Class: III Final Preanesthetic Review: No Changes in Pt Med Stat, Meds/Allgs Chart Reviewed, Consent Obtained/Reviewed and Anes Risks/Benef Reviewed Patient Risk: Low Procedure Risk: Low Anesthetic Plan Anesthetic Plan: GA Disposition: Standard PACU
[2022-08-21 08:25] VITALS: BP 126/85; PULSE 107; RESP 20; O2SAT 96
--- NOTE | 2022-08-21 08:26 | HO.POSTANES ---
Post Anesthesia Evaluation Post Anesthesia Evaluation Vital Signs: Vital Signs Temp Pulse Resp BP Pulse Ox O2 Del Method O2 Flow Rate 08/21/22 08:20 89 19 96 Room Air 08/21/22 08:15 98.7 F 95 16 133/73 96 Nasal Cannula 2 08/21/22 06:43 97.8 F 81 16 119/77 94 Room Air Anesthesia: General Mental Status: Awake Pain Control: Satisfactory Nausea/Vomiting: None Hydration: Adequate Anesthesia-Related Issues: No Anes. Related Issues
[2022-08-21] MEDS: Haloperidol Lactate 5 MG/ML VIAL 2.5 MG IV (08:28)
[2022-08-21 08:32] VITALS: BP 149/92; PULSE 95; RESP 20; O2SAT 96
[2022-08-21] MEDS: clonazePAM 0.5 MG TABLET PO (08:45)
[2022-08-21 08:47] VITALS: BP 160/97; PULSE 96; RESP 20; TEMP 37.1; O2SAT 96
--- NOTE | 2022-08-21 11:17 | HO.ECTPROC ---
ECT Procedure Note Diagnosis/Treatment Date of Service: 08/21/22 Diagnosis: Major Depressive Disorder Previous ECT Date: 08/19/22 Interval Clinical Notes: reportedly had been minimizing sx denies delusional sx denies current active si change to bf ECT Settings Device: THYMATRON DGx Electrode Placement: Bifrontal Program/Pulse Width: 0.25 Energy Percent: 100 Seizure Duration By EEG (in seconds): 47 Medications Administration General Anesthetic: Etomidate (16) Muscle Relaxant: Succinylcholine (100) Ancillary Medications Anti-emetics: Zofran - Pre ECT Miscillaneous Medications: Propofol and Midazolam Airway Management Airway Management: Bag Mask Ventilation Treatment Recommendations No Changes Recommended: No change Pt Tolerated Procedure w/o Issue: Yes
== END 2022-08-21 09:00 | disposition home or self-care (01) ==
PROVIDERS: PCP Internal Medicine; Visit Provider Psychiatry & Neurology Psychiatry
PROC: (CPT 90870; principal; 2022-08-21 07:00)
DX: F33.2 Major depressive disorder, recurrent severe without psychotic features (principal); F41.8 Other specified anxiety disorders; I10 Essential (primary) hypertension; E78.00 Pure hypercholesterolemia, unspecified; J45.20 Mild intermittent asthma, uncomplicated; G47.30 Sleep apnea, unspecified; Z99.89 Dependence on other enabling machines and devices; Z79.899 Other long term (current) drug therapy; Z88.0 Allergy status to penicillin; Z20.822 Contact with and (suspected) exposure to COVID-19
CPT/HCPCS: 87635; 90870; J0330; J1885; J2250; J2405

== ENCOUNTER 2022-08-26 06:09 | Day surgery (SDC) | payer BC, SELFPAY ==
[2022-08-26 06:44] VITALS: BP 172/95; PULSE 81; RESP 20; TEMP 36.5; O2SAT 96; BMI 27.2
[2022-08-26 06:49] LABS: COVID-19 Test Negative (Negative); IDNOW Serial# 9DB6401D
--- NOTE | 2022-08-26 07:46 | MHC.SHP ---
Pre-Procedural Eval Section A Date of Service: 08/26/22 The patient is an INPATIENT: No Changes since office visit: No Cold of Flu in the past 2 weeks, No New Medical Problems, No Changes in Medication and No Patient answered all questions The History & Physical has been completed within 30 days and I have reviewed it.: Yes Section B Chief Complaint: depression Allergies: Allergies Allergy/AdvReac Type Severity Reaction Status Date / Time Penicillins [PCN] Allergy Unknown Verified 08/06/22 10:57 Plan I have reviewed the history and physical and performed a pertinent physical examination on my patient. No changes have occurred unless specified.
--- NOTE | 2022-08-26 08:11 | HO.ECTPROC ---
ECT Procedure Note Diagnosis/Treatment Date of Service: 08/26/22 Diagnosis: Bipolar disorder Previous ECT Date: 08/21/22 Current Treatment Number: 8 Treatment: Series Interval Clinical Notes: The patient reported improvement of mood, no side effects with the previous treatment ECT Settings Device: THYMATRON DGx Electrode Placement: Right Unilateral Program/Pulse Width: 0.25 Energy Percent: 100 Seizure Duration By EEG (in seconds): 28 By Motor Observation (in seconds): 16 Medications Administration General Anesthetic: Etomidate (18) Muscle Relaxant: Succinylcholine (100) Ancillary Medications Analgesics: Torodol - Pre ECT Anti-emetics: Zofran - Pre ECT Airway Management Airway Management: Bag Mask Ventilation Treatment Recommendations No Changes Recommended: No change Pt Tolerated Procedure w/o Issue: Yes
[2022-08-26 08:15] VITALS: BP 153/67; PULSE 73; RESP 15; TEMP 36.6; O2SAT 94
[2022-08-26 08:20] VITALS: BP 143/80; PULSE 79; RESP 17; O2SAT 94
[2022-08-26 08:25] VITALS: BP 166/102; PULSE 88; RESP 20; O2SAT 95
[2022-08-26 08:30] VITALS: BP 148/87; PULSE 97; RESP 18; O2SAT 96
--- NOTE | 2022-08-26 08:32 | HO.ANESPROP2 ---
HPI - Anesthesia Eval Consult details Narrative: Major depressive disorder [facility] Active Problems Active Problems: All Active Problems (Updated 08/06/22 @ 22:23 by Omid Hoff MD) Major depressive disorder, recurrent episode, severe with anxious distress (Acute) Past Medical History Medical History Depression Essential hypertension History of severe acute respiratory syndrome coronavirus 2 (SARS-CoV-2) disease Mild intermittent asthma Pure hypercholesterolemia Sleep apnea Vitamin D deficiency Family History Family history of problems with anesthesia: No Surgical History Surgical History History of colonoscopy History of foot surgery History of inguinal hernia repair History of vasectomy History of Problems with Anesthesia: No Social History Social History Patient Tobacco Use Status: Never used Tobacco Advance Directives: No Advance Directives Information Provided: Yes Current occupational status: employed Current occupation: self employed Meds Allergies Allergy/AdvReac Type Severity Reaction Status Date / Time Penicillins [PCN] Allergy Unknown Verified 08/06/22 10:57 Home Medications Medication Instructions Recorded Confirmed Last Taken Type albuterol sulfate 90 mcg/actuation 2 puff inhalation QID PRN 08/06/22 08/06/22 Unknown History aerosol inhaler Shortness Of Breath Or Wheezing beclomethasone dipropionate 80 2 inh inhalation BID 08/06/22 08/06/22 Unknown History mcg/actuation HFA breath activated aerosol (Qvar RediHaler) cholecalciferol (vitamin D3) 50 50 mcg PO DAILY 08/06/22 08/06/22 Unknown History mcg (2,000 unit) tablet (Vitamin D3) clonazepam 2 mg tablet 2 mg PO DAILY 08/06/22 08/06/22 Unknown History lisinopril 10 mg tablet 10 mg PO DAILY 08/06/22 08/06/22 Unknown History lithium carbonate 300 mg 300 mg PO DAILY 08/06/22 08/06/22 Unknown History tablet,extended release lovastatin 40 mg tablet 40 mg PO DAILY 08/06/22 08/06/22 Unknown History ropinirole 1 mg tablet 1 mg PO DAILY 08/06/22 08/06/22 Unknown History Exam Exam Date and Time: August 26, 2022 0832 Height,Weight and Vital Signs: Height 5 ft 10 in Weight 86.183 kg Last Vital Signs Temp 98 F 08/26/22 08:15 Pulse 88 08/26/22 08:25 Resp 20 08/26/22 08:25 BP 166/102 H 08/26/22 08:25 Pulse Ox 95 08/26/22 08:25 O2 Del Method 08/26/22 08:25 O2 Flow Rate 2 08/26/22 08:25 Pertinent Lab Results Pertinent Lab Results: Laboratory Tests 08/26/22 06:15 COVID-19 ([facility]) Negative COVID-19 Clin Com See Note Airway Mallampati Class: II TM Dist: >3cm Neck ROM: Full Loose/Missing/Broken Teeth: No Heart: [id number]+[id number] Lungs: cta b/l Assessment and Plan Assessment Anesthesia Assessment: Anesthesia Plan Discussed and Chart Reviewed Final Anesthetic Review Family History of Problems with Anesthesia: No History of Problems with Anesthesia: No NPO: Yes ASA Class: III Final Preanesthetic Review: No Changes in Pt Med Stat, Meds/Allgs Chart Reviewed, Consent Obtained/Reviewed and Anes Risks/Benef Reviewed Patient Risk: Intermediate Procedure Risk: Intermediate Assessment/Block/Sedation in SS: Assess/Block/Sedation-SS Anesthetic Plan Anesthetic Plan: GA and Agree w/ Assess. and Plan Disposition: Standard PACU
[2022-08-26 08:45] VITALS: BP 160/73; PULSE 90; RESP 20; TEMP 37; O2SAT 94
== END 2022-08-26 09:25 | disposition home or self-care (01) ==
PROVIDERS: PCP Internal Medicine; Visit Provider Psychiatry & Neurology Psychiatry
PROC: (CPT 90870; principal; 2022-08-26 07:00)
DX: F31.9 Bipolar disorder, unspecified (principal); I10 Essential (primary) hypertension; J45.20 Mild intermittent asthma, uncomplicated; E78.00 Pure hypercholesterolemia, unspecified; G47.30 Sleep apnea, unspecified; E55.9 Vitamin D deficiency, unspecified; Z79.899 Other long term (current) drug therapy; Z88.0 Allergy status to penicillin; Z86.16 Personal history of COVID-19; Z20.822 Contact with and (suspected) exposure to COVID-19
CPT/HCPCS: 87635; 90870; J0330; J0461; J1885; J2250; J2405

== ENCOUNTER → 2022-08-28 06:01 | Day surgery (SDC) | payer BC, SELFPAY ==
[2022-08-28 06:40] LABS: IDNOW Serial# BCCEAD1C
[2022-08-28 06:41] LABS: COVID-19 Test Positive (Negative)
[2022-08-28 07:01] VITALS: BMI 27.3
[2022-08-28 07:23] VITALS: BP 129/86; PULSE 78; RESP 20; TEMP 36.6; O2SAT 94
--- NOTE | 2022-08-28 08:01 | MHC.SHP ---
Pre-Procedural Eval Section A Date of Service: 08/28/22 Changes since office visit: Yes Changes in Medication and Yes Patient answered all questions; No Cold of Flu in the past 2 weeks and No New Medical Problems The History & Physical has been completed within 30 days and I have reviewed it.: Yes Section B Chief Complaint: depression Allergies: Allergies Allergy/AdvReac Type Severity Reaction Status Date / Time Penicillins [PCN] Allergy Unknown Verified 08/06/22 10:57 Plan I have reviewed the history and physical and performed a pertinent physical examination on my patient. No changes have occurred unless specified.
[2022-08-28 09:33] LABS: Influenza A PCR NEGATIVE (Negative); Influenza B PCR NEGATIVE (Negative); Resp Syncy Virus RNA Qual PCR NEGATIVE (Negative); SARS COV2 PCR INHOUSE NEGATIVE (Negative)
== END ==
PROVIDERS: PCP Internal Medicine; Visit Provider Psychiatry & Neurology Psychiatry
DX: F33.3 Major depressive disorder, recurrent, severe with psychotic symptoms (principal); Z53.09 Procedure and treatment not carried out because of other contraindication; U07.1 COVID-19; Z20.822 Contact with and (suspected) exposure to COVID-19
CPT/HCPCS: 0241U; 87635

== ENCOUNTER 2022-08-30 05:57 | Day surgery (SDC) | payer BC, SELFPAY ==
[2022-08-30] VITALS (7 sets, daily range): BP systolic 133–183; BP diastolic 81–102; PULSE 71–99; RESP 13–20; TEMP 36.4–36.8; O2SAT 93–100; BMI 27.6
[2022-08-30 06:38] LABS: COVID-19 Test Negative (Negative); IDNOW Serial# 16C4AD1C
--- NOTE | 2022-08-30 07:58 | MHC.SHP ---
Pre-Procedural Eval Section A Date of Service: 08/30/22 Changes since office visit: Yes Changes in Medication and Yes Patient answered all questions; No Cold of Flu in the past 2 weeks and No New Medical Problems The History & Physical has been completed within 30 days and I have reviewed it.: Yes Section B Chief Complaint: depression Allergies: Allergies Allergy/AdvReac Type Severity Reaction Status Date / Time Penicillins [PCN] Allergy Unknown Verified 08/06/22 10:57 Plan I have reviewed the history and physical and performed a pertinent physical examination on my patient. No changes have occurred unless specified.
--- NOTE | 2022-08-30 08:10 | HO.ECTPROC ---
ECT Procedure Note Diagnosis/Treatment Date of Service: 08/31/22 Diagnosis: Major Depressive Disorder Previous ECT Date: 08/26/22 Treatment: Series Interval Clinical Notes: pts mood improved alert no significant cognitive complaints c/o insomnia ongoing case discussed with dr mederos ECT Settings Device: THYMATRON DGx Electrode Placement: Bifrontal Program/Pulse Width: 0.25 Energy Percent: 100 Seizure Duration By EEG (in seconds): 36 Medications Administration General Anesthetic: Etomidate (18) Muscle Relaxant: Succinylcholine (100) Ancillary Medications Miscillaneous Medications: Propofol and Midazolam Airway Management Airway Management: Bag Mask Ventilation Treatment Recommendations Electrode Placement: Bifrontal Program/Pulse Width: 0.25 Energy Percent: 100 Notes: mood improved no si feels ect helpful no si ect in 3 days then reevaluate Pt Tolerated Procedure w/o Issue: Yes
--- NOTE | 2022-08-30 09:24 | HO.ANESPROP2 ---
HPI - Anesthesia Eval Consult details Narrative: 57 yo male patient for ECT PMF[facility] Active Problems Active Problems: All Active Problems (Updated 08/06/22 @ 22:23 by Omid Hoff MD) Major depressive disorder, recurrent episode, severe with anxious distress (Acute) Covid Negative Past Medical History Medical History Depression Essential hypertension History of severe acute respiratory syndrome coronavirus 2 (SARS-CoV-2) disease Mild intermittent asthma Pure hypercholesterolemia Sleep apnea Vitamin D deficiency Family History Family history of problems with anesthesia: No Surgical History Surgical History History of colonoscopy History of foot surgery History of inguinal hernia repair History of vasectomy History of Problems with Anesthesia: No Social History Social History Patient Tobacco Use Status: Never used Tobacco Current occupational status: employed Current occupation: self employed Meds Allergies Allergy/AdvReac Type Severity Reaction Status Date / Time Penicillins [PCN] Allergy Unknown Verified 08/06/22 10:57 Active Medications: Current Medications Lactated Ringer's (Lr) 1,000 mls @ 100 mls/hr IVCONT .Q10H JAMES Home Medications Medication Instructions Recorded Confirmed Last Taken Type albuterol sulfate 90 mcg/actuation 2 puff inhalation QID PRN 08/06/22 08/06/22 Unknown History aerosol inhaler Shortness Of Breath Or Wheezing beclomethasone dipropionate 80 2 inh inhalation BID 08/06/22 08/06/22 Unknown History mcg/actuation HFA breath activated aerosol (Qvar RediHaler) cholecalciferol (vitamin D3) 50 50 mcg PO DAILY 08/06/22 08/06/22 Unknown History mcg (2,000 unit) tablet (Vitamin D3) clonazepam 2 mg tablet 2 mg PO DAILY 08/06/22 08/06/22 Unknown History lisinopril 10 mg tablet 10 mg PO DAILY 08/06/22 08/06/22 Unknown History lithium carbonate 300 mg 300 mg PO DAILY 08/06/22 08/06/22 Unknown History tablet,extended release lovastatin 40 mg tablet 40 mg PO DAILY 08/06/22 08/06/22 Unknown History ropinirole 1 mg tablet 1 mg PO DAILY 08/06/22 08/06/22 Unknown History Exam Exam Date and Time: August 30, 2022 0924 Height,Weight and Vital Signs: Height 5 ft 10 in Weight 87.543 kg Last Vital Signs Temp 98.3 F 08/30/22 08:57 Pulse 88 08/30/22 08:57 Resp 16 08/30/22 08:57 BP 148/81 H 08/30/22 08:57 Pulse Ox 95 08/30/22 08:57 O2 Del Method 08/30/22 08:57 O2 Flow Rate 2 08/30/22 08:22 Pertinent Lab Results Pertinent Lab Results: Laboratory Tests 08/30/22 06:13 COVID-19 ([facility]) Negative COVID-19 Clin Com See Note Airway Mallampati Class: III TM Dist: >3cm Neck ROM: Full Loose/Missing/Broken Teeth: No (Denies broken or loose teeth) Heart: RRR Lungs: CTAB Assessment and Plan Assessment Anesthesia Assessment: Anesthesia Plan Discussed and Chart Reviewed Final Anesthetic Review Family History of Problems with Anesthesia: No History of Problems with Anesthesia: No NPO: Yes ASA Class: III Final Preanesthetic Review: No Changes in Pt Med Stat, Meds/Allgs Chart Reviewed, Consent Obtained/Reviewed and Anes Risks/Benef Reviewed Patient Risk: Intermediate Procedure Risk: Intermediate Anesthetic Plan Anesthetic Plan: GA Disposition: Standard PACU
== END 2022-08-30 09:31 | disposition home or self-care (01) ==
PROVIDERS: PCP Internal Medicine; Visit Provider Psychiatry & Neurology Psychiatry
PROC: (CPT 90870; principal; 2022-08-30 08:00)
DX: F33.2 Major depressive disorder, recurrent severe without psychotic features (principal); I10 Essential (primary) hypertension; J45.20 Mild intermittent asthma, uncomplicated; E78.00 Pure hypercholesterolemia, unspecified; E55.9 Vitamin D deficiency, unspecified; G47.30 Sleep apnea, unspecified; Z79.899 Other long term (current) drug therapy; Z88.0 Allergy status to penicillin; Z20.822 Contact with and (suspected) exposure to COVID-19
CPT/HCPCS: 87635; 90870; J0330; J1885; J2250; J2405

== ENCOUNTER 2022-09-02 05:56 | Day surgery (SDC) | payer BC, SELFPAY ==
[2022-09-02] VITALS (7 sets, daily range): BP systolic 118–146; BP diastolic 69–80; PULSE 81–91; RESP 12–16; TEMP 36.3–37; O2SAT 94–98; BMI 27.6
[2022-09-02 06:33] LABS: COVID-19 Test Negative (Negative); IDNOW Serial# 16C4AD1C
--- NOTE | 2022-09-02 06:45 | HO.ANESPROP2 ---
[facility] [place] Active Problems Active Problems: All Active Problems (Updated 08/06/22 @ 22:23 by Omid Hoff MD) Major depressive disorder, recurrent episode, severe with anxious distress (Acute) Past Medical History Medical History Depression Essential hypertension History of severe acute respiratory syndrome coronavirus 2 (SARS-CoV-2) disease Mild intermittent asthma Pure hypercholesterolemia Sleep apnea Vitamin D deficiency Family History Family history of problems with anesthesia: No Surgical History Surgical History History of colonoscopy History of foot surgery History of inguinal hernia repair History of vasectomy History of Problems with Anesthesia: No Social History Social History Patient Tobacco Use Status: Never used Tobacco Advance Directives: No Advance Directives Information Provided: Yes Current occupational status: employed Current occupation: self employed Meds Allergies Allergy/AdvReac Type Severity Reaction Status Date / Time Penicillins [PCN] Allergy Unknown Verified 08/06/22 10:57 Active Medications: Current Medications Lactated Ringer's (Lr) 1,000 mls @ 50 mls/hr IVCONT .Q20H JAMES Home Medications Medication Instructions Recorded Confirmed Last Taken Type albuterol sulfate 90 mcg/actuation 2 puff inhalation QID PRN 08/06/22 08/06/22 Unknown History aerosol inhaler Shortness Of Breath Or Wheezing beclomethasone dipropionate 80 2 inh inhalation BID 08/06/22 08/06/22 Unknown History mcg/actuation HFA breath activated aerosol (Qvar RediHaler) cholecalciferol (vitamin D3) 50 50 mcg PO DAILY 08/06/22 08/06/22 Unknown History mcg (2,000 unit) tablet (Vitamin D3) clonazepam 2 mg tablet 2 mg PO DAILY 08/06/22 08/06/22 Unknown History lisinopril 10 mg tablet 10 mg PO DAILY 08/06/22 08/06/22 Unknown History lithium carbonate 300 mg 300 mg PO DAILY 08/06/22 08/06/22 Unknown History tablet,extended release lovastatin 40 mg tablet 40 mg PO DAILY 08/06/22 08/06/22 Unknown History ropinirole 1 mg tablet 1 mg PO DAILY 08/06/22 08/06/22 Unknown History Exam Exam Date and Time: September 02, 2022 0645 Height,Weight and Vital Signs: Height 5 ft 10 in Weight 87.543 kg Last Vital Signs Temp 97.4 F 09/02/22 06:30 Pulse 89 09/02/22 06:30 Resp 12 09/02/22 06:30 BP 124/77 09/02/22 06:30 Pulse Ox 97 09/02/22 06:30 O2 Del Method 09/02/22 06:30 Pertinent Lab Results Pertinent Lab Results: Laboratory Tests 09/02/22 06:10 COVID-19 ([facility]) Negative COVID-19 Clin Com See Note Airway Mallampati Class: II TM Dist: >3cm Neck ROM: Full Heart: rrr Lungs: cta Assessment and Plan Assessment Anesthesia Assessment: Anesthesia Plan Discussed and Chart Reviewed Final Anesthetic Review Family History of Problems with Anesthesia: No History of Problems with Anesthesia: No NPO: Yes ASA Class: III Final Preanesthetic Review: No Changes in Pt Med Stat, Meds/Allgs Chart Reviewed and Consent Obtained/Reviewed Patient Risk: Intermediate Procedure Risk: Intermediate Anesthetic Plan Anesthetic Plan: GA Disposition: Standard PACU
--- NOTE | 2022-09-02 07:11 | MHC.SHP ---
Pre-Procedural Eval Section A Date of Service: 09/02/22 The patient is an INPATIENT: No Changes since office visit: No Cold of Flu in the past 2 weeks, No New Medical Problems, No Changes in Medication and No Patient answered all questions The History & Physical has been completed within 30 days and I have reviewed it.: Yes Section B Chief Complaint: depression Details of Present Illness: responded fast to ECT Relevant Family History (Specify if Yes): No Relevant Social History: None Present Medications: see Short Stay Collaborative assessment Medical History: No relevant PMH History of Previous Operations: No relevant previous surgery Allergies: Allergies Allergy/AdvReac Type Severity Reaction Status Date / Time Penicillins [PCN] Allergy Unknown Verified 08/06/22 10:57 Review of Systems Sugical H&P ROS: Negative: Constitution, Cardiovascular, Respiratory, Neurological, Psychiatric, Hem-Onc, Allergic/Immunologic, Gastrointestinal, Genitourinary, Musculoskeletal, Integumentary, Endocrine and Eyes/Ears/Nose/Throat Exam Surgical H&P Exam: Normal: HEENT, Normal: Heart, Normal: Lungs, Normal: Extremities, Normal: Abdomen, Normal: Skin and Normal: Neurological Plan Diagnosis/Plan: Unchanged I have reviewed the history and physical and performed a pertinent physical examination on my patient. No changes have occurred unless specified.
--- NOTE | 2022-09-02 07:21 | HO.ECTPROC ---
ECT Procedure Note Diagnosis/Treatment Date of Service: 09/02/22 Diagnosis: Bipolar disorder Previous ECT Date: 08/30/22 Current Treatment Number: 10 Treatment: Series Interval Clinical Notes: The patient reports resolution of depression, no side effects. We are discussing that most likely, we can finish the series today. ECT Settings Device: THYMATRON DGx Electrode Placement: Bitemporal Program/Pulse Width: 0.25 Energy Percent: 100 Medications Administration General Anesthetic: Etomidate (18) Muscle Relaxant: Succinylcholine (100) Ancillary Medications Analgesics: Torodol - Pre ECT Anti-emetics: Zofran - Pre ECT Miscillaneous Medications: Propofol and Midazolam Airway Management Airway Management: Bag Mask Ventilation Treatment Recommendations No Changes Recommended: No change Pt Tolerated Procedure w/o Issue: Yes
== END 2022-09-02 08:48 | disposition home or self-care (01) ==
PROVIDERS: PCP Internal Medicine; Visit Provider Psychiatry & Neurology Psychiatry
PROC: (CPT 90870; principal; 2022-09-02 07:30)
DX: F31.9 Bipolar disorder, unspecified (principal); I10 Essential (primary) hypertension; E78.00 Pure hypercholesterolemia, unspecified; E55.9 Vitamin D deficiency, unspecified; J45.20 Mild intermittent asthma, uncomplicated; G47.30 Sleep apnea, unspecified; Z79.899 Other long term (current) drug therapy; Z88.0 Allergy status to penicillin; Z86.16 Personal history of COVID-19; Z20.822 Contact with and (suspected) exposure to COVID-19
CPT/HCPCS: 87635; 90870; J0330; J1885; J2250; J2405

== ENCOUNTER 2022-09-09 06:00 | Day surgery (SDC) | payer BC, SELFPAY ==
[2022-09-09 06:41] VITALS: BP 139/75; PULSE 91; RESP 20; TEMP 36.4; O2SAT 98; BMI 26.4
[2022-09-09 06:47] LABS: COVID-19 Test Negative (Negative); IDNOW Serial# 9DB6401D
--- NOTE | 2022-09-09 07:24 | P.HPSUR_ITS ---
Pre-Procedural Eval Section A Date of Service: 09/09/22 The patient is an INPATIENT: No Changes since office visit: No Cold of Flu in the past 2 weeks, No New Medical Problems, No Changes in Medication and No Patient answered all questions The History & Physical has been completed within 30 days and I have reviewed it.: Yes Section B Chief Complaint: depression Details of Present Illness: Reports improvement wjth ECT Relevant Family History (Specify if Yes): No Relevant Social History: None Present Medications: see Short Stay Collaborative assessment Medical History: No relevant PMH History of Previous Operations: No relevant previous surgery Allergies: Allergies Allergy/AdvReac Type Severity Reaction Status Date / Time Penicillins [PCN] Allergy Unknown Verified 08/06/22 10:57 Review of Systems Sugical H&P ROS: Negative: Constitution, Cardiovascular, Respiratory, Neurological, Psychiatric, Hem-Onc, Allergic/Immunologic, Gastrointestinal, Genitourinary, Musculoskeletal, Integumentary, Endocrine and Eyes/Ears/Nose/Throat Exam Surgical H&P Exam: Normal: HEENT, Normal: Heart, Normal: Lungs, Normal: Ext remities, Normal: Abdomen, Normal: Skin and Normal: Neurological Plan Diagnosis/Plan: Unchanged I have reviewed the history and physical and performed a pertinent physical examination on my patient. No changes have occurred unless specified.
--- NOTE | 2022-09-09 07:25 | HO.ECTPROC ---
ECT Procedure Note Diagnosis/Treatment Date of Service: 09/09/22 Diagnosis: Bipolar disorder Previous ECT Date: 09/02/22 Current Treatment Number: 11 Treatment: Series Interval Clinical Notes: The patient reported improvement of depression, at this moment asymptomatic. No side effects with previous procedure. Now on a weekly schedule Time: Total time managing care of this patient today __25__ minutes. ECT Settings Device: THYMATRON DGx Electrode Placement: Bitemporal Program/Pulse Width: 0.50 Energy Percent: 100 Seizure Duration By EEG (in seconds): 42 By Motor Observation (in seconds): 28 Medications Administration General Anesthetic: Etomidate (18) Muscle Relaxant: Succinylcholine (100) Ancillary Medications Anti-emetics: Zofran - Pre ECT Airway Management Airway Management: Bag Mask Ventilation Treatment Recommendations No Changes Recommended: No change Pt Tolerated Procedure w/o Issue: Yes
[2022-09-09 07:57] VITALS: BP 137/76; PULSE 110; RESP 19; TEMP 37.1; O2SAT 94
--- NOTE | 2022-09-09 07:58 | HO.ANESPROP2 ---
[facility] Active Problems Active Problems: All Active Problems (Updated 08/06/22 @ 22:23 by Omid Hoff MD) Major depressive disorder, recurrent episode, severe with anxious distress (Acute) Past Medical History Medical History Depression Essential hypertension History of severe acute respiratory syndrome coronavirus 2 (SARS-CoV-2) disease Mild intermittent asthma Pure hypercholesterolemia Sleep apnea Vitamin D deficiency Family History Family history of problems with anesthesia: No Surgical History Surgical History History of colonoscopy History of foot surgery History of inguinal hernia repair History of vasectomy History of Problems with Anesthesia: No Social History Social History Patient Tobacco Use Status: Never used Tobacco Advance Directives: No Advance Directives Information Provided: Yes Current occupational status: employed Current occupation: self employed Meds Allergies Allergy/AdvReac Type Severity Reaction Status Date / Time Penicillins [PCN] Allergy Unknown Verified 08/06/22 10:57 Home Medications Medication Instructions Recorded Confirmed Last Taken Type albuterol sulfate 90 mcg/actuation 2 puff inhalation QID PRN 08/06/22 08/06/22 Unknown History aerosol inhaler Shortness Of Breath Or Wheezing beclomethasone dipropionate 80 2 inh inhalation BID 08/06/22 08/06/22 Unknown History mcg/actuation HFA breath activated aerosol (Qvar RediHaler) cholecalciferol (vitamin D3) 50 50 mcg PO DAILY 08/06/22 08/06/22 Unknown History mcg (2,000 unit) tablet (Vitamin D3) clonazepam 2 mg tablet 2 mg PO DAILY 08/06/22 08/06/22 Unknown History lisinopril 10 mg tablet 10 mg PO DAILY 08/06/22 08/06/22 Unknown History lithium carbonate 300 mg 300 mg PO DAILY 08/06/22 08/06/22 Unknown History tablet,extended release lovastatin 40 mg tablet 40 mg PO DAILY 08/06/22 08/06/22 Unknown History ropinirole 1 mg tablet 1 mg PO DAILY 08/06/22 08/06/22 Unknown History Exam Exam Date and Time: September 09, 2022 0498 Height,Weight and Vital Signs: Height 5 ft 11 in Weight 86.183 kg Last Vital Signs Temp 97.6 F 09/09/22 06:41 Pulse 91 09/09/22 06:41 Resp 20 09/09/22 06:41 BP 139/75 09/09/22 06:41 Pulse Ox 98 09/09/22 06:41 O2 Del Method 09/09/22 06:41 Pertinent Lab Results Pertinent Lab Results: Laboratory Tests 09/09/22 06:19 COVID-19 ([facility]) Negative COVID-19 Clin Com See Note Airway Mallampati Class: II TM Dist: >3cm Neck ROM: Full Assessment and Plan Assessment Anesthesia Assessment: Anesthesia Plan Discussed and Chart Reviewed Final Anesthetic Review Family History of Problems with Anesthesia: No History of Problems with Anesthesia: No NPO: Yes ASA Class: II Final Preanesthetic Review: No Changes in Pt Med Stat, Meds/Allgs Chart Reviewed, Consent Obtained/Reviewed and Anes Risks/Benef Reviewed Patient Risk: Low Anesthetic Plan Anesthetic Plan: GA Disposition: Standard PACU
[2022-09-09 08:02] VITALS: BP 135/87; PULSE 120; RESP 19; O2SAT 94
[2022-09-09 08:07] VITALS: BP 163/88; PULSE 111; RESP 17; O2SAT 97
[2022-09-09 08:12] VITALS: BP 156/54; PULSE 107; RESP 17; O2SAT 96
[2022-09-09 08:37] VITALS: BP 148/70; PULSE 98; RESP 17; TEMP 37.1; O2SAT 96
== END 2022-09-09 08:58 | disposition home or self-care (01) ==
PROVIDERS: PCP Internal Medicine; Visit Provider Psychiatry & Neurology Psychiatry
PROC: (CPT 90870; principal; 2022-09-09 07:30)
DX: F31.30 Bipolar disorder, current episode depressed, mild or moderate severity, unspecified (principal); I10 Essential (primary) hypertension; J45.20 Mild intermittent asthma, uncomplicated; Z79.899 Other long term (current) drug therapy; Z88.0 Allergy status to penicillin; Z20.822 Contact with and (suspected) exposure to COVID-19
CPT/HCPCS: 87635; 90870; J0330; J1885; J2250; J2405

== ENCOUNTER 2022-09-16 05:55 | Day surgery (SDC) | payer BC, SELFPAY ==
[2022-09-16] VITALS (7 sets, daily range): BP systolic 125–177; BP diastolic 72–94; PULSE 63–109; RESP 16–20; TEMP 36.4–36.6; O2SAT 92–97; BMI 27.9
[2022-09-16 06:33] LABS: COVID-19 Test Negative (Negative); IDNOW Serial# BCCEAD1C
--- NOTE | 2022-09-16 06:52 | HO.ANESPROP2 ---
[facility] Active Problems Active Problems: All Active Problems (Updated 08/06/22 @ 22:23 by Omid Hoff MD) Major depressive disorder, recurrent episode, severe with anxious distress (Acute) Past Medical History Medical History Depression Essential hypertension History of severe acute respiratory syndrome coronavirus 2 (SARS-CoV-2) disease Mild intermittent asthma Pure hypercholesterolemia Sleep apnea Vitamin D deficiency Family History Family history of problems with anesthesia: No Surgical History Surgical History History of colonoscopy History of foot surgery History of inguinal hernia repair History of vasectomy History of Problems with Anesthesia: No Social History Social History Patient Tobacco Use Status: Never used Tobacco Advance Directives: No Advance Directives Information Provided: Yes Current occupational status: employed Current occupation: self employed Meds Allergies Allergy/AdvReac Type Severity Reaction Status Date / Time Penicillins [PCN] Allergy Unknown Verified 08/06/22 10:57 Active Medications: Current Medications Lactated Ringer's (Lr) 1,000 mls @ 50 mls/hr IVCONT .Q20H JAMES Home Medications Medication Instructions Recorded Confirmed Last Taken Type albuterol sulfate 90 mcg/actuation 2 puff inhalation QID PRN 08/06/22 08/06/22 Unknown History aerosol inhaler Shortness Of Breath Or Wheezing beclomethasone dipropionate 80 2 inh inhalation BID 08/06/22 08/06/22 Unknown History mcg/actuation HFA breath activated aerosol (Qvar RediHaler) cholecalciferol (vitamin D3) 50 50 mcg PO DAILY 08/06/22 08/06/22 Unknown History mcg (2,000 unit) tablet (Vitamin D3) clonazepam 2 mg tablet 2 mg PO DAILY 08/06/22 08/06/22 Unknown History lisinopril 10 mg tablet 10 mg PO DAILY 08/06/22 08/06/22 Unknown History lithium carbonate 300 mg 300 mg PO DAILY 08/06/22 08/06/22 Unknown History tablet,extended release lovastatin 40 mg tablet 40 mg PO DAILY 08/06/22 08/06/22 Unknown History ropinirole 1 mg tablet 1 mg PO DAILY 08/06/22 08/06/22 Unknown History Exam Exam Date and Time: September 16, 2022 0652 Height,Weight and Vital Signs: Height 5 ft 10 in Weight 88.451 kg Last Vital Signs Temp 97.6 F 09/16/22 06:43 Pulse 84 09/16/22 06:43 Resp 20 09/16/22 06:43 BP 128/75 09/16/22 06:43 Pulse Ox 97 09/16/22 06:43 O2 Del Method 09/16/22 06:43 Pertinent Lab Results Pertinent Lab Results: Laboratory Tests 09/16/22 06:15 COVID-19 ([facility]) Negative COVID-19 Clin Com See Note Airway Mallampati Class: III TM Dist: >3cm (Small mouth opening) Neck ROM: Full Heart: trr Lungs: cta Assessment and Plan Assessment Anesthesia Assessment: Anesthesia Plan Discussed and Chart Reviewed Final Anesthetic Review Family History of Problems with Anesthesia: No History of Problems with Anesthesia: No NPO: Yes ASA Class: III Final Preanesthetic Review: No Changes in Pt Med Stat, Meds/Allgs Chart Reviewed and Consent Obtained/Reviewed Patient Risk: Intermediate Procedure Risk: Intermediate Anesthetic Plan Anesthetic Plan: GA Disposition: Standard PACU
--- NOTE | 2022-09-16 07:32 | MHC.SHP ---
Pre-Procedural Eval Section A Date of Service: 09/16/22 The patient is an INPATIENT: No Changes since office visit: Yes Changes in Medication and Yes Patient answered all questions; No Cold of Flu in the past 2 weeks and No New Medical Problems The History & Physical has been completed within 30 days and I have reviewed it.: Yes Section B Chief Complaint: depression Allergies: Allergies Allergy/AdvReac Type Severity Reaction Status Date / Time Penicillins [PCN] Allergy Unknown Verified 08/06/22 10:57 Plan I have reviewed the history and physical and performed a pertinent physical examination on my patient. No changes have occurred unless specified. Time Spent With Patient Time: Total time managing care of this patient today ____ minutes.
--- NOTE | 2022-09-16 07:33 | HO.ECTPROC ---
ECT Procedure Note Diagnosis/Treatment Date of Service: 09/16/22 Diagnosis: Major Depressive Disorder Previous ECT Date: 09/09/22 Current Treatment Number: 12 Treatment: Maintenance Interval Clinical Notes: pt feeling significantly improved denies si or psychosis no c/o side effects Time: Total time managing care of this patient today ____ minutes. ECT Settings Device: THYMATRON DGx Electrode Placement: Bitemporal Program/Pulse Width: 0.50 Energy Percent: 100 Seizure Duration By EEG (in seconds): 46 Medications Administration General Anesthetic: Etomidate (18) Muscle Relaxant: Succinylcholine (160) Ancillary Medications Analgesics: Torodol - Pre ECT (15) Anti-emetics: Zofran - Pre ECT (4) Airway Management Airway Management: Bag Mask Ventilation Treatment Recommendations No Changes Recommended: No change Notes: doing well f/u tx 1-2 weeks coordinate with his outpatient psychiatrist Dr. Wheat patient remains on Trintellix 20 mg Patient doing much better postop Pt Tolerated Procedure w/o Issue: Yes
== END 2022-09-16 09:01 | disposition home or self-care (01) ==
PROVIDERS: PCP Internal Medicine; Visit Provider Psychiatry & Neurology Psychiatry
PROC: (CPT 90870; principal; 2022-09-16 07:30)
DX: F33.9 Major depressive disorder, recurrent, unspecified (principal); J45.20 Mild intermittent asthma, uncomplicated; I10 Essential (primary) hypertension; G47.33 Obstructive sleep apnea (adult) (pediatric); E55.9 Vitamin D deficiency, unspecified; Z79.51 Long term (current) use of inhaled steroids; Z99.89 Dependence on other enabling machines and devices; Z79.899 Other long term (current) drug therapy; Z88.0 Allergy status to penicillin; Z20.822 Contact with and (suspected) exposure to COVID-19; Z86.16 Personal history of COVID-19
CPT/HCPCS: 87635; 90870; J0330; J1885; J2405

== ENCOUNTER 2022-09-27 05:57 | Day surgery (SDC) | payer BC, SELFPAY ==
[2022-09-27] VITALS (7 sets, daily range): BP systolic 120–165; BP diastolic 62–91; PULSE 78–100; RESP 11–20; TEMP 36.3–36.8; O2SAT 92–99; BMI 28.8
[2022-09-27 06:36] LABS: COVID-19 Test Negative (Negative); IDNOW Serial# 16C4AD1C
--- NOTE | 2022-09-27 07:28 | MHC.SHP ---
Pre-Procedural Eval Section A Date of Service: 09/27/22 The patient is an INPATIENT: No Changes since office visit: Yes Changes in Medication and Yes Patient answered all questions; No Cold of Flu in the past 2 weeks and No New Medical Problems The History & Physical has been completed within 30 days and I have reviewed it.: Yes Section B Chief Complaint: depression Allergies: Allergies Allergy/AdvReac Type Severity Reaction Status Date / Time Penicillins [PCN] Allergy Unknown Verified 08/06/22 10:57 Plan I have reviewed the history and physical and performed a pertinent physical examination on my patient. No changes have occurred unless specified. Time Spent With Patient Time: Total time managing care of this patient today ____ minutes.
--- NOTE | 2022-09-27 07:30 | HO.ECTPROC ---
ECT Procedure Note Diagnosis/Treatment Date of Service: 09/27/22 Diagnosis: Major Depressive Disorder Previous ECT Date: 09/16/22 Current Treatment Number: 13 Treatment: Maintenance Interval Clinical Notes: pt feeling significantly improved but insomnia still problematic on thorazine 300 mg hs Time: Total time managing care of this patient today ____ minutes. ECT Settings Device: THYMATRON DGx Electrode Placement: Bitemporal Program/Pulse Width: 0.50 Energy Percent: 100 Seizure Duration By EEG (in seconds): 18 Medications Administration General Anesthetic: Etomidate (18) Muscle Relaxant: Succinylcholine (160) Ancillary Medications Analgesics: Torodol - Pre ECT (15) Anti-emetics: Zofran - Pre ECT (4) Airway Management Airway Management: Bag Mask Ventilation Treatment Recommendations No Changes Recommended: No change Notes: try and decrease etomidate sz 18 s Pt Tolerated Procedure w/o Issue: Yes
--- NOTE | 2022-09-27 07:34 | HO.ANESPROP2 ---
HPI - Anesthesia Eval Consult details Narrative: 57 yo male patient for ECT PMFSH Active Problems Active Problems: All Active Problems (Updated 08/06/22 @ 22:23 by Omid Hoff MD) Major depressive disorder, recurrent episode, severe with anxious distress (Acute) Past Medical History Medical History Depression Essential hypertension History of severe acute respiratory syndrome coronavirus 2 (SARS-CoV-2) disease Mild intermittent asthma Pure hypercholesterolemia Sleep apnea Vitamin D deficiency Family History Family history of problems with anesthesia: No Surgical History Surgical History History of colonoscopy History of foot surgery History of inguinal hernia repair History of vasectomy History of Problems with Anesthesia: No Social History Social History Patient Tobacco Use Status: Never used Tobacco Current occupational status: employed Current occupation: self employed Meds Allergies Allergy/AdvReac Type Severity Reaction Status Date / Time Penicillins [PCN] Allergy Unknown Verified 08/06/22 10:57 Home Medications Medication Instructions Recorded Confirmed Last Taken Type albuterol sulfate 90 mcg/actuation 2 puff inhalation QID PRN 08/06/22 08/06/22 Unknown History aerosol inhaler Shortness Of Breath Or Wheezing beclomethasone dipropionate 80 2 inh inhalation BID 08/06/22 08/06/22 Unknown History mcg/actuation HFA breath activated aerosol (Qvar RediHaler) cholecalciferol (vitamin D3) 50 50 mcg PO DAILY 08/06/22 08/06/22 Unknown History mcg (2,000 unit) tablet (Vitamin D3) clonazepam 2 mg tablet 2 mg PO DAILY 08/06/22 08/06/22 Unknown History lisinopril 10 mg tablet 10 mg PO DAILY 08/06/22 08/06/22 Unknown History lithium carbonate 300 mg 300 mg PO DAILY 08/06/22 08/06/22 Unknown History tablet,extended release lovastatin 40 mg tablet 40 mg PO DAILY 08/06/22 08/06/22 Unknown History ropinirole 1 mg tablet 1 mg PO DAILY 08/06/22 08/06/22 Unknown History Exam Exam Date and Time: September 27, 2022 0734 Height,Weight and Vital Signs: Height 5 ft 8 in Weight 86.183 kg Last Vital Signs Temp 97.7 F 09/27/22 06:33 Pulse 89 09/27/22 06:33 Resp 12 09/27/22 06:33 BP 123/78 09/27/22 06:33 Pulse Ox 94 09/27/22 06:33 O2 Del Method 09/27/22 06:33 Pertinent Lab Results Pertinent Lab Results: Laboratory Tests 09/27/22 06:15 COVID-19 ([facility]) Negative COVID-19 Clin Com See Note Airway Mallampati Class: III TM Dist: >3cm Neck ROM: Full Loose/Missing/Broken Teeth: No (Denies broken or loose teeth) Heart: RRR Lungs: CTAB Assessment and Plan Assessment Anesthesia Assessment: Anesthesia Plan Discussed and Chart Reviewed Final Anesthetic Review Family History of Problems with Anesthesia: No History of Problems with Anesthesia: No NPO: Yes ASA Class: III Final Preanesthetic Review: No Changes in Pt Med Stat, Meds/Allgs Chart Reviewed, Consent Obtained/Reviewed and Anes Risks/Benef Reviewed Patient Risk: Intermediate Procedure Risk: Intermediate Anesthetic Plan Anesthetic Plan: GA Disposition: Standard PACU
--- NOTE | 2022-09-30 21:14 | HO.ECTPROC ---
ECT Procedure Note Diagnosis/Treatment Date of Service: 09/27/22 Diagnosis: Major Depressive Disorder Time: Total time managing care of this patient today ____ minutes. ECT Settings Device: THYMATRON DGx
== END 2022-09-27 08:55 | disposition home or self-care (01) ==
PROVIDERS: PCP Internal Medicine; Visit Provider Psychiatry & Neurology Psychiatry
PROC: (CPT 90870; principal; 2022-09-27 07:00)
DX: F33.2 Major depressive disorder, recurrent severe without psychotic features (principal); G47.00 Insomnia, unspecified; J45.20 Mild intermittent asthma, uncomplicated; I10 Essential (primary) hypertension; E78.00 Pure hypercholesterolemia, unspecified; E55.9 Vitamin D deficiency, unspecified; G47.30 Sleep apnea, unspecified; Z79.899 Other long term (current) drug therapy; Z88.0 Allergy status to penicillin; Z86.16 Personal history of COVID-19; Z20.822 Contact with and (suspected) exposure to COVID-19
CPT/HCPCS: 87635; 90870; J0330; J1885; J2405